=== PATIENT | female | born 1950 | race Caucasian/White ===

== ENCOUNTER → 2016-06-25 | Outpatient (CLI) | payer OTHER ==
[2013-02-01 10:52] VITALS: BP 111/79
--- NOTE | 2016-06-28 09:30 | MRI ---
MRI left knee without contrast Indication: Chronic left knee pain Comparison: None Technique: Multiplanar, multisequence MR images of the left knee were obtained without contrast. Findings: There is mild to moderate tricompartmental chondrosis, most significant within the medial femorotibial compartment. No full-thickness chondral defect or significant subchondral marrow signal abnormality is identified. There is mild tricompartmental marginal osteophytosis. Linear intermedia te intrasubstance signal is noted within the medial meniscal posterior horn and posterior junctional zone, with extension to the inferior meniscal surface (for example sagittal PD image 14). There is fraying of the medial meniscal posterior root. The lateral meniscus is intact. The ACL, PCL, MCL, ma marisela lateral stabilizers, and extensor mechanism are intact. No significant joint effusion. There is a tiny popliteal cyst with some nonencapsulated fluid cranially, suggesting partial rupture. Impression: 1. 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 2. Degenerative tear of the medial meniscal posterior horn. Fraying of the medial meniscal posterior root. 3. Tiny popliteal cyst Reported By:
== END ==
LOC: RAD 14:04
PROVIDERS: ATTEND Nurse Practitioner Family
DX: M25.562 Pain in left knee (principal); M17.12 Unilateral primary osteoarthritis, left knee; M23.305 Other meniscus derangements, unspecified medial meniscus, unspecified knee; M71.21 Synovial cyst of popliteal space [Baker], right knee
CPT/HCPCS: 73721

== ENCOUNTER → 2017-05-11 | Outpatient (CLI) | payer OTHER ==
[2013-02-01 10:52] VITALS: BP 111/79
--- NOTE | 2017-05-12 16:14 | MG ---
HISTORY: SCREENING Comparison: Multiple priors dating back to September 18, 2007 FINDINGS: Bilateral CC and MLO projections of the right and left breast were obtained. Scattered fibroglandula r tissue is seen to be present without suspicious interval change. There are waxing and waning bilat eral sub cm breast nodules most compatible with benign cysts without new or developing dominant suspi cious mass or architectural distortion. No skin thickening or nipple retraction is appreciated. No pathological lymphadenopathy can be identified. Benign calcifications are noted. IMPRESSION: NO RADIOGRAPHIC EVIDENCE OF MALIGNANCY. ACR CATEGORY II - benign findings. FOLLOW-UP EXAM 1 YEAR. Diagnostic CAD was utilized and reviewed. * 0 (ZERO) - ASSESSMENT INCOMPLETE; ADDITIONAL IMAGING IS NEEDED. * 1/ (ONE) - NEGATIVE. * 2/II (TWO) - BENIGN FINDINGS. * 3/III (THREE) - PROBABLY BENIGN FINDING; SHORT INTERVAL FOLLOW-UP SUGGESTED. * 4/IV (FOUR) - SUSPICIOUS ABNORMALITY; BIOPSY SHOULD BE CONSIDERED. * 5/V - HIGHLY SUSPICIOUS OF MALIGNANCY; BIOPSY SHOULD BE PERFORMED. A NEGATIVE X-RAY REPORT SHOULD NOT DELAY BIOPSY IF A DOMINANT OR CLINICALLY SUSPICIOUS MASS IS PRESENT; 4 TO 8 PERCENT OF CANCERS ARE NOT IDENTIFIED BY X-RAY. A NEGA TIVE REPORT MAY REINFORCE THE CLINICAL IMPRESSION. ADENOSIS AND DENSE BREASTS MAY OBSCURE AN UNDERLY ING NEOPLASM. Reported By:
== END ==
LOC: RAD 08:57
PROVIDERS: ATTEND Nurse Practitioner Family
DX: Z12.31 Encounter for screening mammogram for malignant neoplasm of breast (principal)
CPT/HCPCS: 77067